=== PATIENT | male | born 1970 | race Caucasian/White ===

== ENCOUNTER 2022-07-07 10:41 | Outpatient (REF) | payer MEDICAID, SELFPAY ==
[2022-07-07 14:36] LABS: MANUAL DIFF FLAG NO
[2022-07-07 14:42] LABS: Basophils Percent Auto 0.4 % (0-2); Eosinophils Absolute Auto 0.1 X10*3/uL (0.0-0.4); Eosinophils Percent Auto 1.6 % (0-4); Hematocrit 42.7 % (42.0-52.0); Hemoglobin 14.2 g/dl (14.0-18.0); Imm Gran Abs Auto 0.01 X10*3/uL (0.00-0.03); Imm Gran Pct Auto 0.2 % (0.0-0.4); Lymphocytes Absolute Auto 1.8 X10*3/uL (1.2-4.9); Lymphocytes Percent Auto 35.6 % (20-40); Mean Corpuscular HGB Conc 33.3 g/dl (31.0-36.0); Mean Corpuscular Volume 93.2 fL (80.0-98.0); Mean Platelet Volume 10.7 fL (9.4-12.4); Monocytes Absolute Auto 0.3 X10*3/uL (0.1-1.2); Monocytes Percent Auto 6.7 % (2-11); Neutrophils Absolute Auto 2.8 x10*3/uL (2.0-8.3); Neutrophils Percent Auto 55.5 % (45-73); Platelet Count 216 X10*3/uL (160-400); Red Blood Count 4.58 X10*6/uL (4.60-5.80); White Blood Count 5.1 X10*3/uL (4.8-10.8)
[2022-07-07 14:57] LABS: Alanine Aminotransferase 51 U/L (0-40); Albumin Level 4.4 g/dL (3.5-5.0); Alkaline Phosphatase 97 U/L (39-117); Anion Gap 14 (12-20); Aspartate Amino Transferase 23 U/L (5-37); Bilirubin Total 0.5 mg/dL (0.0-1.0); Blood Urea Nitrogen 17 mg/dL (9-16); C Reactive Protein 0.25 mg/dL (< or = 0.50); Calcium 9.6 mg/dL (8.4-10.2); Carbon Dioxide 26 mmol/L (22-29); Chloride 107 mmol/L (96-108); Cholesterol 125 mg/dL; Estimated Glomerular Filt Rate > 60; Glucose Random 119 mg/dL (60-115); HDL Cholesterol 39 mg/dL; LDL Cholesterol Calculated 63 mg/dl; Potassium 4.5 mmol/L (3.3-5.1); Rheumatoid Factor < 15.0 IU/mL (<15.0); Sodium 142 mmol/L (135-145); Total Protein 7.5 g/dL (6.5-8.0); Triglycerides 117 mg/dL
[2022-07-07 15:17] LABS: Prostate Specific Antigen 0.75 ng/mL (<0.05-4.0); Thyroid Stimulating Hormone 0.85 uIU/mL (0.32-4.0); Vitamin D 25-OH Total 38.7 ng/mL (>30)
[2022-07-07 15:21] LABS: Erythrocyte Sedimentation Rate 7 MM/HR (0-15)
[2022-07-09 13:56] LABS: Anti Nuclear Antibody Screen NEGATIVE (NEGATIVE)
== END 2022-07-07 10:42 | disposition home or self-care (01) ==
LOC: HO.MANLDS 10:41
PROVIDERS: Visit Provider Internal Medicine
DX: Z00.00 Encounter for general adult medical examination without abnormal findings (principal)
CPT/HCPCS: 36415; 80053; 80061; 82306; 83735; 84153; 84443; 85025; 85652; 86038; 86039; 86140; 86431

== ENCOUNTER 2023-09-12 10:26 | Outpatient (REF) | payer MEDICAID, SELFPAY ==
[2023-09-12 13:38] LABS: MANUAL DIFF FLAG NO
[2023-09-12 13:46] LABS: Basophils Percent Auto 0.5 % (0-2); Eosinophils Absolute Auto 0.1 X10*3/uL (0.0-0.4); Eosinophils Percent Auto 0.9 % (0-4); Hemoglobin 14.6 g/dl (14.0-18.0); Imm Gran Abs Auto 0.01 X10*3/uL (0.00-0.03); Imm Gran Pct Auto 0.2 % (0.0-0.4); Lymphocytes Absolute Auto 1.9 X10*3/uL (1.2-4.9); Lymphocytes Percent Auto 33.6 % (20-40); Mean Corpuscular HGB Conc 33.2 g/dl (31.0-36.0); Mean Corpuscular Hemoglobin 30.6 pg (27.0-33.0); Mean Corpuscular Volume 92.2 fL (80.0-98.0); Monocytes Absolute Auto 0.4 X10*3/uL (0.1-1.2); Monocytes Percent Auto 7.5 % (2-11); Neutrophils Absolute Auto 3.3 x10*3/uL (2.0-8.3); Neutrophils Percent Auto 57.3 % (45-73); Platelet Count 224 X10*3/uL (160-400); Red Blood Count 4.77 X10*6/uL (4.60-5.80); Red Cell Distribution Width 13.3 % (11.0-16.0); White Blood Count 5.7 X10*3/uL (4.8-10.8)
[2023-09-12 14:10] LABS: Alanine Aminotransferase 27 U/L (0-40); Albumin Level 4.2 g/dL (3.5-5.0); Alkaline Phosphatase 77 U/L (39-117); Anion Gap 7 (12-20); Aspartate Amino Transferase 19 U/L (5-37); Bilirubin Total 0.5 mg/dL (0.0-1.0); Blood Urea Nitrogen 15 mg/dL (9-16); C Reactive Protein 0.23 mg/dL (< or = 0.50); Calcium 9.3 mg/dL (8.4-10.2); Carbon Dioxide 27 mmol/L (22-29); Chloride 106 mmol/L (96-108); Estimated Glomerular Filt Rate > 60; Glucose Random 102 mg/dL (60-115); Potassium 4.4 mmol/L (3.3-5.1); Sodium 136 mmol/L (135-145); Total Protein 7.6 g/dL (6.5-8.0)
[2023-09-12 14:28] LABS: Erythrocyte Sedimentation Rate 9 MM/HR (0-15)
== END 2023-09-12 10:27 | disposition home or self-care (01) ==
LOC: HO.MANLDS 10:26
PROVIDERS: Visit Provider Internal Medicine
DX: M79.10 Myalgia, unspecified site (principal)
CPT/HCPCS: 36415; 80053; 82550; 85025; 85652; 86140

== ENCOUNTER 2023-09-26 09:04 | Outpatient (REF) | payer MEDICAID, SELFPAY | END 2023-09-26 09:05 | disposition home or self-care (01) | LOC: HO.WFDLDS 09:04 | PROVIDERS: Visit Provider Internal Medicine | DX: T46.6X5A Adverse effect of antihyperlipidemic and antiarteriosclerotic drugs, initial encounter (principal) | CPT/HCPCS: 36415; 82550 ==

== ENCOUNTER 2023-09-30 11:38 | Outpatient (REF) | payer MEDICAID, SELFPAY ==
[2023-09-30 14:20] LABS: Erythrocyte Sedimentation Rate 9 MM/HR (0-15)
== END 2023-09-30 11:39 | disposition home or self-care (01) ==
LOC: HO.MANLDS 11:38
PROVIDERS: Visit Provider Internal Medicine
DX: M79.10 Myalgia, unspecified site (principal)
CPT/HCPCS: 36415; 82550; 85652

== ENCOUNTER 2023-11-29 14:17 | Outpatient (REF) | payer MEDICAID, SELFPAY ==
[2023-11-29 17:57] LABS: Rheumatoid Factor < 13.0 IU/mL (<15.0); Uric Acid 7.1 mg/dL (3.4-7.0)
[2023-11-29 18:30] LABS: Erythrocyte Sedimentation Rate 6 MM/HR (0-15)
[2023-11-30 18:48] LABS: Lyme Abs Screen <0.90 index
[2023-12-01 13:58] LABS: A phagocytophilum IgG <1:64 (<1:64); A phagocytophilum IgM <1:20 (<1:20)
[2023-12-01 14:38] LABS: Cyclic Citrullinated Peptide <16 UNITS
[2023-12-01 14:53] LABS: Anti Nuclear Antibody Screen NEGATIVE (NEGATIVE)
[2023-12-01 19:08] LABS: Immunoglobulin A 338 mg/dL (47-310); Immunoglobulin G 1182 mg/dL (600-1640)
[2023-12-01 20:49] LABS: Myeloperoxidase Antibody <1.0 AI; Proteinase 3 PR3 Antibodies <1.0 AI
[2023-12-08 15:13] LABS: Babesia IgG <1:64 titer (<1:64); Babesia IgM <1:20 titer (<1:20)
[2023-12-14 09:42] LABS: Parvovirus B19 IgG 3.26; Parvovirus B19 IgM <0.9
== END 2023-11-29 14:18 | disposition home or self-care (01) ==
LOC: HO.MANLDS 14:17
PROVIDERS: Visit Provider Internal Medicine
DX: M25.50 Pain in unspecified joint (principal)
CPT/HCPCS: 36415; 82784; 84550; 85652; 86021; 86038; 86200; 86431; 86617; 86618; 86666; 86747; 86753